=== PATIENT | male | born 1950 | race Caucasian/White ===

== ENCOUNTER 2016-09-14 18:36 | Inpatient (IN) | payer OTHER ==
[~2016-09-14] VITALS: Ht 167.6 cm; Wt 76.5 kg
[2016-09-14 19:25] LABS: BASOPHIL % 0.2 % (0-2); RED CELL DISTRIBUTION WIDTH 14.3 % (11.5-14.5)
[2016-09-14 19:29] LABS: PLATELET COUNT 118 x10^3mcL (130-400)
[2016-09-14 19:35] LABS: CALCIUM 8.8 mg/dL (8.5-10.1); CARBON DIOXIDE 30.5 mmol/L (21-32); CHLORIDE SERUM 105 mmol/L (98-107); CREATININE SERUM 1.2 mg/dL (0.7-1.3); GFR1 > 60 mL/min; GLUCOSE SERUM 264 mg/dL (74-106); POTASSIUM SERUM 3.3 mmol/L (3.5-5.1); SODIUM SERUM 144 mmol/L (136-145)
[2016-09-14 19:39] LABS: ALBUMIN 4.3 g/dL (3.4-5.0); ALKALINE PHOSPHATASE 119 U/L (46-116); ALT/SGPT 68 U/L (16-63); AST/SGOT 28 U/L (15-37); BILIRUBIN TOTAL 0.7 mg/dL (0.20-1.00); TOTAL PROTEIN, SERUM 7.7 g/dL (6.4-8.2)
[2016-09-14 19:53] LABS: AMPHETAMINE QUAL UR NONE DETECTED (NEG <=1000)
[2016-09-14] MEDS ORDERED: TRAMADOL HCL50 MG PO (20:17)
[2016-09-14] MEDS ORDERED: WELSR100 PO (20:17)
[2016-09-14] MEDS ORDERED: BUSPIRONE HCL10 MG PO (20:17)
[2016-09-14] MEDS ORDERED: NOR5 PO (20:18)
[2016-09-14 21:08] VITALS: BP 167/84
[2016-09-14 21:16] LABS: T3 TOTAL 1.06 ng/mL
[2016-09-14 21:17] LABS: UA SPECIFIC GRAVITY 1.015 (1.005-1.035); microscopic required? YES; urine erythrocyte TRACE (NEGATIVE)
[2016-09-14 21:18] LABS: CHOLESTEROL/HDL RATIO 4.9
[2016-09-14 21:19] LABS: FREE T4 0.69 ng/dL (0.76-1.46); FREE THYROXINE INDEX 1.9 ug/dL (1.4-4.5); T4(THYROXINE) 6.5 ug/dL (4.7-13.3)
[2016-09-15 02:27] LABS: BASOPHIL % 0.4 % (0-2); RED CELL DISTRIBUTION WIDTH 14.3 % (11.5-14.5)
[2016-09-15 02:29] LABS: PLATELET COUNT 85 x10^3mcL (130-400)
[2016-09-15 02:38] LABS: CALCIUM 8.6 mg/dL (8.5-10.1); CARBON DIOXIDE 33.4 mmol/L (21-32); CHLORIDE SERUM 106 mmol/L (98-107); CREATININE SERUM 0.9 mg/dL (0.7-1.3); GFR1 > 60 mL/min; GLUCOSE SERUM 136 mg/dL (74-106); PHOSPHOROUS 3.6 mg/dL (2.5-4.9); POTASSIUM SERUM 3.8 mmol/L (3.5-5.1); SODIUM SERUM 145 mmol/L (136-145)
[2016-09-15 05:33] VITALS: BP 146/74
[2016-09-15 09:12] VITALS: BP 157/79
[2016-09-15 13:15] VITALS: BP 151/76
[2016-09-15 17:13] VITALS: BP 153/81
[2016-09-15 21:30] VITALS: BP 160/82
[2016-09-15 21:40] VITALS: BP 143/76
[2016-09-16 05:57] VITALS: BP 140/65
[2016-09-16 07:39] LABS: BASOPHIL % 0.5 % (0-2); RED CELL DISTRIBUTION WIDTH 14.1 % (11.5-14.5)
[2016-09-16 07:43] LABS: PLATELET COUNT 77 x10^3mcL (130-400)
[2016-09-16 07:53] LABS: CALCIUM 8.3 mg/dL (8.5-10.1); CARBON DIOXIDE 30.1 mmol/L (21-32); CHLORIDE SERUM 105 mmol/L (98-107); CREATININE SERUM 0.9 mg/dL (0.7-1.3); GFR1 > 60 mL/min; GLUCOSE SERUM 97 mg/dL (74-106); MAGNESIUM 1.9 mg/dL (1.8-2.4); PHOSPHOROUS 4.1 mg/dL (2.5-4.9); POTASSIUM SERUM 3.2 mmol/L (3.5-5.1); SODIUM SERUM 143 mmol/L (136-145)
[2016-09-16 10:36] VITALS: BP 146/69
[2016-09-16 13:39] VITALS: BP 131/73
[2016-09-16] MEDS ORDERED: TEN50 PO (16:54)
[2016-09-16] MEDS ORDERED: GLYBURIDE2.5 MG PO (16:55)
[2016-09-16] MEDS ORDERED: COU5 PO ×2 (16:55)
[2016-09-16] MEDS ORDERED: ZES5 PO ×2 (16:55→16:56)
[2016-09-16] MEDS ORDERED: LIPI10 PO ×2 (16:55)
[2016-09-16 17:07] VITALS: BP 131/73
== END 2016-09-16 18:02 | disposition home or self-care (01) | DRG 308 ==
LOC: ED 18:36 → DU 20:07
PROVIDERS: Emergency Medicine; ADMIT Family Medicine
DX: I48.91 Unspecified atrial fibrillation (principal); N17.0 Acute kidney failure with tubular necrosis; E87.6 Hypokalemia; E11.65 Type 2 diabetes mellitus with hyperglycemia; F41.9 Anxiety disorder, unspecified; F43.10 Post-traumatic stress disorder, unspecified; K74.69 Other cirrhosis of liver; B18.2 Chronic viral hepatitis C; F12.10 Cannabis abuse, uncomplicated; Z68.27 Body mass index [BMI] 27.0-27.9, adult
CPT/HCPCS: 80307; 82962; 83880; 84439; J3480; J7030; Q0092; Q0177; Q9966; Q9967

== ENCOUNTER 2016-10-08 13:48 | Observation (INO) | payer OTHER ==
[~2016-10-08] VITALS: Ht 167.6 cm; Wt 75.0 kg
[~2016-10-08 13:48] MED LIST: BUSPIRONE HCL10 MG PO; COU5 PO; GLYBURIDE2.5 MG PO; LIPI10 PO; NOR5 PO; TEN50 PO; TRAMADOL HCL50 MG PO; WELSR100 PO; ZES5 PO
[2016-10-08 15:54] LABS: BASOPHIL % 0.8 % (0-2); PLATELET COUNT 87 x10^3mcL (130-400); RED CELL DISTRIBUTION WIDTH 13.9 % (11.5-14.5)
[2016-10-08 16:05] LABS: CALCIUM 8.7 mg/dL (8.5-10.1); CARBON DIOXIDE 32.3 mmol/L (21-32); CHLORIDE SERUM 104 mmol/L (98-107); CREATININE SERUM 0.9 mg/dL (0.7-1.3); GFR1 > 60 mL/min; GLUCOSE SERUM 147 mg/dL (74-106); POTASSIUM SERUM 3.8 mmol/L (3.5-5.1); SODIUM SERUM 142 mmol/L (136-145)
[2016-10-08 16:16] LABS: ALBUMIN 4.2 g/dL (3.4-5.0); ALKALINE PHOSPHATASE 74 U/L (46-116); ALT/SGPT 58 U/L (16-63); AMYLASE 60 U/L (25-115); AST/SGOT 31 U/L (15-37); BILIRUBIN TOTAL 1.41 mg/dL (0.20-1.00); HDL CHOLESTEROL 35 mg/dL (40-60); LIPASE 156 IU/L (73-393); T4(THYROXINE) 7.2 ug/dL (4.7-13.3); TOTAL PROTEIN, SERUM 7.4 g/dL (6.4-8.2)
[2016-10-08 16:17] LABS: CHOLESTEROL 99 mg/dL (<200)
[2016-10-08 18:36] VITALS: BP 176/81
[2016-10-08 18:48] LABS: CHOLESTEROL/HDL RATIO 2.8
[2016-10-08 19:18] LABS: AMPHETAMINE QUAL UR NONE DETECTED (NEG <=1000)
[2016-10-08 21:47] VITALS: BP 167/76
[2016-10-09 05:41] VITALS: BP 142/74
[2016-10-09 06:27] LABS: BASOPHIL % 0.5 % (0-2); RED CELL DISTRIBUTION WIDTH 13.9 % (11.5-14.5)
[2016-10-09 06:39] LABS: PLATELET COUNT 66 x10^3mcL (130-400)
[2016-10-09 08:08] LABS: CALCIUM 8.6 mg/dL (8.5-10.1); CARBON DIOXIDE 28.8 mmol/L (21-32); CHLORIDE SERUM 107 mmol/L (98-107); CREATININE SERUM 0.8 mg/dL (0.7-1.3); GFR1 > 60 mL/min; GLUCOSE SERUM 152 mg/dL (74-106); MAGNESIUM 1.8 mg/dL (1.8-2.4); PHOSPHOROUS 2.8 mg/dL (2.5-4.9); POTASSIUM SERUM 3.2 mmol/L (3.5-5.1); SODIUM SERUM 142 mmol/L (136-145)
[2016-10-09 10:03] VITALS: BP 131/78
[2016-10-09 12:46] VITALS: BP 130/86
[2016-10-09 17:17] VITALS: BP 168/83
[2016-10-09 17:30] VITALS: BP 122/74
[2016-10-09 20:49] VITALS: BP 167/75
[2016-10-10 05:47] VITALS: BP 149/77
[2016-10-10 06:02] LABS: BASOPHIL % 0.4 % (0-2)
[2016-10-10 06:31] LABS: CALCIUM 8.4 mg/dL (8.5-10.1); CARBON DIOXIDE 28.2 mmol/L (21-32); CHLORIDE SERUM 105 mmol/L (98-107); GFR1 > 60 mL/min; GLUCOSE SERUM 207 mg/dL (74-106); POTASSIUM SERUM 3.6 mmol/L (3.5-5.1); SODIUM SERUM 141 mmol/L (136-145)
[2016-10-10 07:10] LABS: PLATELET COUNT 72 x10^3mcL (130-400)
[2016-10-10 09:16] VITALS: BP 166/77
[2016-10-10] MEDS ORDERED: LIPITOR80 MG PO (11:58)
[2016-10-10] MEDS ORDERED: COUMADIN1 MG PO (11:59)
[2016-10-10 13:20] VITALS: BP 144/69
[2016-10-10 16:59] VITALS: BP 144/69
== END 2016-10-10 18:20 | disposition home or self-care (01) | DRG 315 ==
LOC: ED 13:48 → DU 17:17
PROVIDERS: Emergency Medicine; Family Medicine; ADMIT Family Medicine
DX: R58 Hemorrhage, not elsewhere classified (principal); D68.69 Other thrombophilia; T45.515A Adverse effect of anticoagulants, initial encounter; D69.59 Other secondary thrombocytopenia; I48.91 Unspecified atrial fibrillation; E78.00 Pure hypercholesterolemia, unspecified; R23.3 Spontaneous ecchymoses; B18.2 Chronic viral hepatitis C; K74.69 Other cirrhosis of liver; R16.0 Hepatomegaly, not elsewhere classified; F43.10 Post-traumatic stress disorder, unspecified; G89.29 Other chronic pain; E11.51 Type 2 diabetes mellitus with diabetic peripheral angiopathy without gangrene; F41.9 Anxiety disorder, unspecified; F12.10 Cannabis abuse, uncomplicated; Z68.26 Body mass index [BMI] 26.0-26.9, adult; Y92.018 Other place in single-family (private) house as the place of occurrence of the external cause; Y92.009 Unspecified place in unspecified non-institutional (private) residence as the place of occurrence of the external cause
CPT/HCPCS: 80307; 82962; 83880; G0378; G0480; J3430; J3480; J7030

== ENCOUNTER 2017-02-17 12:16 | Inpatient (IN) | payer OTHER ==
[~2017-02-17] VITALS: Ht 172.7 cm; Wt 81.6 kg
[~2017-02-17 12:16] MED LIST changes: +COUMADIN1 MG PO; +LIPITOR80 MG PO
[2017-02-17 14:37] LABS: BASOPHIL % 0.4 % (0-2)
[2017-02-17 14:41] LABS: PLATELET COUNT 99 x10^3mcL (130-400)
[2017-02-17 14:47] LABS: CALCIUM 8.5 mg/dL (8.5-10.1); CARBON DIOXIDE 32.9 mmol/L (21-32); CHLORIDE SERUM 107 mmol/L (98-107); GFR1 > 60 mL/min; GLUCOSE SERUM 170 mg/dL (74-106); SODIUM SERUM 143 mmol/L (136-145)
[2017-02-17 14:51] LABS: ALBUMIN 3.8 g/dL (3.4-5.0); ALKALINE PHOSPHATASE 97 U/L (46-116); ALT/SGPT 60 U/L (16-63); AST/SGOT 35 U/L (15-37); BILIRUBIN TOTAL 0.6 mg/dL (0.20-1.00); TOTAL PROTEIN, SERUM 7.4 g/dL (6.4-8.2)
[2017-02-17 15:38] LABS: UA SPECIFIC GRAVITY >=1.030 (1.005-1.035); microscopic required? YES; urine erythrocyte NEGATIVE (NEGATIVE)
[2017-02-17 17:40] VITALS: BP 182/82
[2017-02-17 17:41] VITALS: BP 182/82
[2017-02-17 18:30] VITALS: BP 160/84
[2017-02-17 21:10] LABS: T3 TOTAL 1.19 ng/mL
[2017-02-17 21:30] VITALS: BP 165/82
[2017-02-17 21:33] LABS: FREE T4 0.85 ng/dL (0.76-1.46); FREE THYROXINE INDEX 2.5 ug/dL (1.4-4.5); T4(THYROXINE) 7.3 ug/dL (4.7-13.3)
[2017-02-17 22:06] LABS: CHOLESTEROL/HDL RATIO 5.1; MAGNESIUM 2.1 mg/dL (1.8-2.4); PHOSPHOROUS 2.9 mg/dL (2.5-4.9)
[2017-02-17 22:55] VITALS: BP 179/81
[2017-02-17 23:55] VITALS: BP 167/74
[2017-02-18] VITALS (7 sets, daily range): BP systolic 131–192; BP diastolic 57–93
[2017-02-19] VITALS (8 sets, daily range): BP systolic 137–187; BP diastolic 77–89
[2017-02-19 06:16] LABS: BASOPHIL % 0.3 % (0-2)
[2017-02-19 06:40] LABS: CALCIUM 8.4 mg/dL (8.5-10.1); CARBON DIOXIDE 30.3 mmol/L (21-32); CHLORIDE SERUM 107 mmol/L (98-107); CREATININE SERUM 0.9 mg/dL (0.7-1.3); GFR1 > 60 mL/min; GLUCOSE SERUM 104 mg/dL (74-106); POTASSIUM SERUM 3.7 mmol/L (3.5-5.1); SODIUM SERUM 145 mmol/L (136-145)
[2017-02-19 06:42] LABS: PLATELET COUNT 80 x10^3mcL (130-400); RED CELL DISTRIBUTION WIDTH 14.6 % (11.5-14.5)
[2017-02-20 05:44] VITALS: BP 166/80
[2017-02-20 07:33] LABS: CALCIUM 8.8 mg/dL (8.5-10.1); CARBON DIOXIDE 31.3 mmol/L (21-32); CHLORIDE SERUM 106 mmol/L (98-107); GFR1 > 60 mL/min; GLUCOSE SERUM 139 mg/dL (74-106); POTASSIUM SERUM 3.7 mmol/L (3.5-5.1); SODIUM SERUM 142 mmol/L (136-145)
[2017-02-20 09:30] VITALS: BP 187/83
[2017-02-20 13:00] VITALS: BP 135/64
[2017-02-20] MEDS ORDERED: LOP50 PO (16:51)
[2017-02-20] MEDS ORDERED: NOR5 PO (16:52)
[2017-02-20] MEDS ORDERED: ZES20 PO (16:52)
[2017-02-20] MEDS ORDERED: ISO10 PO ×2 (16:56→18:17)
[2017-02-20 17:55] VITALS: BP 135/64
[2017-02-20 18:02] VITALS: BP 144/77
== END 2017-02-20 18:43 | disposition home or self-care (01) | DRG 304 ==
LOC: ED 12:16 → DU 16:27
PROVIDERS: Emergency Medicine; ADMIT Family Medicine Sports Medicine
DX: I16.0 Hypertensive urgency (principal); N17.0 Acute kidney failure with tubular necrosis; E11.51 Type 2 diabetes mellitus with diabetic peripheral angiopathy without gangrene; E11.65 Type 2 diabetes mellitus with hyperglycemia; E83.51 Hypocalcemia; F43.10 Post-traumatic stress disorder, unspecified; F32.9 Major depressive disorder, single episode, unspecified; I48.2 Chronic atrial fibrillation; K74.69 Other cirrhosis of liver; B18.2 Chronic viral hepatitis C; E03.9 Hypothyroidism, unspecified; Z68.26 Body mass index [BMI] 26.0-26.9, adult; Z79.84 Long term (current) use of oral hypoglycemic drugs; Z79.01 Long term (current) use of anticoagulants
CPT/HCPCS: 36600; 82962; 83880; 84439; J0360; J2270; J2405; J3490; J7030; J8597; Q0092

== ENCOUNTER 2017-02-22 10:31 | Emergency (ER) | payer OTHER ==
[~2017-02-22 10:31] MED LIST changes: +ISO10 PO; +LOP50 PO; +ZES20 PO
[2017-02-22 11:22] LABS: BASOPHIL % 0.3 % (0-2); PLATELET COUNT 108 x10^3mcL (130-400); RED CELL DISTRIBUTION WIDTH 14.7 % (11.5-14.5)
[2017-02-22 11:41] LABS: CALCIUM 8.9 mg/dL (8.5-10.1); CARBON DIOXIDE 30.6 mmol/L (21-32); CHLORIDE SERUM 99 mmol/L (98-107); CREATININE SERUM 0.9 mg/dL (0.7-1.3); GFR1 > 60 mL/min; GLUCOSE SERUM 167 mg/dL (74-106); POTASSIUM SERUM 3.6 mmol/L (3.5-5.1); SODIUM SERUM 137 mmol/L (136-145)
[2017-02-22 11:46] LABS: ALBUMIN 4.2 g/dL (3.4-5.0); ALKALINE PHOSPHATASE 69 U/L (46-116); ALT/SGPT 52 U/L (16-63); AST/SGOT 35 U/L (15-37); BILIRUBIN TOTAL 1.2 mg/dL (0.20-1.00); TOTAL PROTEIN, SERUM 7.9 g/dL (6.4-8.2)
[2017-02-22 12:18] LABS: UA SPECIFIC GRAVITY 1.015 (1.005-1.035); microscopic required? YES; urine erythrocyte TRACE (NEGATIVE)
[2017-02-22 14:01] VITALS: BP 162/91
== END 2017-02-22 14:01 | disposition home or self-care (01) ==
LOC: ED 10:31
PROVIDERS: Emergency Medicine
DX: R51 Headache (principal); E11.9 Type 2 diabetes mellitus without complications; I10 Essential (primary) hypertension; G89.29 Other chronic pain; M54.9 Dorsalgia, unspecified; K74.60 Unspecified cirrhosis of liver; B19.20 Unspecified viral hepatitis C without hepatic coma; I48.91 Unspecified atrial fibrillation; Z86.79 Personal history of other diseases of the circulatory system; Z79.899 Other long term (current) drug therapy
CPT/HCPCS: 83880; 86788; 86789; J2765; J3010; J7030; Q9967

== ENCOUNTER 2017-08-21 16:45 | Emergency (ER) | payer OTHER ==
[~2017-08-21] VITALS: Ht 172.7 cm; Wt 73.0 kg
[2017-08-21 16:55] VITALS: Ht 172.7 cm; Wt 73.0 kg
[2017-08-21 18:00] LABS: UA SPECIFIC GRAVITY 1.025 (1.005-1.035); microscopic required? YES; urine erythrocyte NEGATIVE (NEGATIVE)
[2017-08-21 18:02] LABS: BASOPHIL % 0.3 % (0-2); RED CELL DISTRIBUTION WIDTH 13.1 % (11.5-14.5)
[2017-08-21 18:04] LABS: PLATELET COUNT 92 x10^3mcL (130-400)
[2017-08-21 18:10] LABS: CALCIUM 8.7 mg/dL (8.5-10.1); CARBON DIOXIDE 29.9 mmol/L (21-32); CHLORIDE SERUM 103 mmol/L (98-107); CREATININE SERUM 1.1 mg/dL (0.7-1.3); GFR1 > 60 mL/min; GLUCOSE SERUM 130 mg/dL (74-106); POTASSIUM SERUM 3.9 mmol/L (3.5-5.1); SODIUM SERUM 141 mmol/L (136-145)
[2017-08-21 18:15] LABS: ALBUMIN 4.4 g/dL (3.4-5.0); ALKALINE PHOSPHATASE 72 U/L (46-116); ALT/SGPT 48 U/L (16-63); AMYLASE 58 U/L (25-115); AST/SGOT 29 U/L (15-37); BILIRUBIN TOTAL 0.85 mg/dL (0.20-1.00); LIPASE 122 IU/L (73-393); TOTAL PROTEIN, SERUM 7.5 g/dL (6.4-8.2)
[2017-08-21 19:57] VITALS: BP 157/65
== END 2017-08-21 19:57 | disposition home or self-care (01) ==
LOC: ED 16:45
PROVIDERS: Emergency Medicine
DX: R10.13 Epigastric pain (principal); R11.0 Nausea; I10 Essential (primary) hypertension; E11.9 Type 2 diabetes mellitus without complications; G89.29 Other chronic pain; M54.9 Dorsalgia, unspecified; K74.60 Unspecified cirrhosis of liver; B19.20 Unspecified viral hepatitis C without hepatic coma; Z88.6 Allergy status to analgesic agent; Z88.5 Allergy status to narcotic agent
CPT/HCPCS: 83880; J2270; J2405; Q0092

== ENCOUNTER 2017-08-29 17:21 | Emergency (ER) | payer OTHER ==
[~2017-08-29] VITALS: Ht 172.7 cm; Wt 72.6 kg
[2017-08-29 17:32] VITALS: BP 164/79; Ht 172.7 cm; Wt 72.6 kg
== END 2017-08-29 18:17 | disposition home or self-care (01) ==
LOC: ED 17:21
DX: K80.80 Other cholelithiasis without obstruction (principal); I48.91 Unspecified atrial fibrillation; I10 Essential (primary) hypertension; E11.9 Type 2 diabetes mellitus without complications; K74.60 Unspecified cirrhosis of liver; B19.20 Unspecified viral hepatitis C without hepatic coma
CPT/HCPCS: J1885